=== PATIENT | male | born 1945 | race Caucasian/White ===

== ENCOUNTER 2017-09-17 05:40 | Day surgery (SDC) | payer MEDICARE, OTHER ==
[2017-09-17] MEDS ORDERED: fentaNYL 100 MCG/2 ML SDV ONE (06:15)
[2017-09-17] MEDS ORDERED: Midazolam 1 MG/ML 2 ML SDV ONE (06:15)
[2017-09-17] MEDS ORDERED: Sodium Chloride 0.9% 10 ML Syringe FLUSH PRN (06:26)
[2017-09-17] MEDS ORDERED: Sodium Chloride 0.9% 10 ML Syringe FLUSH SCH (06:30)
[2017-09-17] MEDS ORDERED: Dextrose 5%-0.45% NaCl 1,000 ML IV SCH ×2 (06:30)
[2017-09-17] MEDS ORDERED: fentaNYL 100 MCG/2 ML SDV IV ONE ×2 (07:06→07:07)
[2017-09-17] MEDS ORDERED: Midazolam 1 MG/ML 2 ML SDV IV ONE ×3 (07:07→07:09)
[2017-09-17 10:48] VITALS: BP 108/77
--- NOTE | 2017-09-17 11:07 | OR ---
DATE: 09/17/2017 PROCEDURES: Esophagogastroduodenoscopy and multiple pinch biopsies. INSTRUMENT USED: GIF-H180 Olympus video panendoscope. PREMEDICATIONS: No oral topical anesthesia used. Fentanyl 100 mcg intravenous, Versed 2 mg intravenous. Nasal O2 cannula. The procedure was done under pulse oximetry, BP recording, and panel monitor. INDICATION: The patient on anticoagulants with a history of melena and anemia, requiring packed cell transfusion. DESCRIPTION OF PROCEDURE: Esophagogastroduodenoscopy is performed for detection of any active erosive lesions. Coughlin esophagus and/or malignancy also under consideration. H. pylori status to be determined. Endoscopic hemostasis therapy if needed. The scope was passed with ease. Adequate visualization of the esophagus was made from proximal to distal areas. No upper esophageal lesions identified. No distal esophageal stricture. No uphill or downhill esophageal varices. No Karis-Wade tear. No evidence of erosive esophagitis by [place] criteria. No esophageal polyp or tumor mass identified. Z-line was seen at around 40 cm distal to the oral verge, configuration consistent with grade 1 by ZAP classification. No proximal gastric varices noted. Gastric fundus examination by retroflexion showed no polypoid lesions. No gastric ulcer, malignant mass, or vascular ectasia identified. Diminutive polyp was noted in the proximal gastric body. The examination was compromised especially in the proximal stomach due to the presence of solid food material that could not be aspirated clear. Duodenal bulb showed no ulcer. Visualized second part of the duodenum was unremarkable. Multiple pinch biopsies were taken from the gastric antrum and proximal body and sent for PyloriTek test for H. pylori, and if negative in an hour, the tissue is to be sent for histopathology. No bleeding was noted from any of the visualized areas at the completion of examination. Photographs were taken of the duodenal bulb, gastric antrum, fundus, and distal esophagus. IMPRESSION: Gastroparesis. The patient tolerated the procedure well. [facility] /[id number]
== END 2017-09-17 09:18 | disposition home or self-care (01) ==
LOC: DL.ENDO 05:40
PROVIDERS: ATTEND Internal Medicine Gastroenterology
DX: D64.9 Anemia, unspecified (principal); K92.1 Melena; K31.84 Gastroparesis; K31.89 Other diseases of stomach and duodenum; K31.7 Polyp of stomach and duodenum; I10 Essential (primary) hypertension
CPT/HCPCS: 43239; 87077; J7042; J2250; J3010

== ENCOUNTER 2017-11-27 05:31 | Day surgery (SDC) | payer MEDICARE, OTHER ==
[2017-11-27] MEDS ORDERED: fentaNYL 100 MCG/2 ML SDV IV ONE ×3 (05:32→06:29)
[2017-11-27] MEDS ORDERED: Midazolam 1 MG/ML 2 ML SDV IV ONE ×7 (05:32→06:36)
[2017-11-27] MEDS ORDERED: Sodium Chloride 0.9% 10 ML Syringe FLUSH PRN (06:00)
[2017-11-27] MEDS ORDERED: Dextrose 5%-0.45% NaCl 1,000 ML IV SCH (06:00)
[2017-11-27] MEDS ORDERED: Midazolam 1 MG/ML 2 ML SDV ONE (06:01)
[2017-11-27] MEDS ORDERED: fentaNYL 100 MCG/2 ML SDV ONE (06:01)
--- NOTE | 2017-11-27 08:51 | OR ---
DATE: 11/27/2017 PROCEDURES: Total colonoscopy, narrow-band imaging, and cold snare polypectomy. INSTRUMENT USED: CF-H180 AL Olympus video colonoscope. PREMEDICATIONS: Fentanyl 100 mcg intravenous, Versed 4 mg intravenous. Nasal O2 cannula. The procedure was done under pulse oximetry, BP recording, and dinkey motor operator. INDICATION: The patient with increasing constipation and recent gastrointestinal bleeding and related anemia. Colonoscopic examination is done for detection of any polypoid lesions and removal. Endoscopic hemostasis therapy if needed. DESCRIPTION OF PROCEDURE: Initial rectal exam was unremarkable. Rigid anoscopy was normal. The colonoscope was passed with ease. Scattered diverticula were noted in the distal left colon along with some deformity. The scope was passed with ease up to the ileocecal area. Photographs were taken of the normal-appearing cecum identified by landmarks of appendiceal orifice and double-bulged ileocecal folds. No bleeding was noted from any of the visualized areas at the commencement of the examination. No stricture. No vascular ectasia. No large isolated ulcerations seen. No evidence of diffuse inflammatory bowel disease in the form of friability, contact bleeding, or ulcerations. Probing the proximal sides of folds and flexures, using adequate distention and clearing of the stool material, withdrawal of the scope was made. The bowel preparation was found to be adequate. In the mid ascending colon, 5-mm sized benign-appearing polyp was noted. NBI views were obtained. Photographs were taken. Cold snare polypectomy was done, and the tissue was retrieved and sent for histopathology. No bleeding was noted from any of the visualized areas at the completion of examination. IMPRESSION: 1. Diverticulosis. 2. Ascending colon polyp. The patient tolerated the procedure well. [facility] /[id number]
[2017-11-27 12:38] VITALS: BP 119/63
== END 2017-11-27 08:52 | disposition home or self-care (01) ==
LOC: DL.ENDO 05:31
PROVIDERS: ATTEND Internal Medicine Gastroenterology
DX: K58.1 Irritable bowel syndrome with constipation (principal); D64.9 Anemia, unspecified; K57.30 Diverticulosis of large intestine without perforation or abscess without bleeding; D12.2 Benign neoplasm of ascending colon; I10 Essential (primary) hypertension; I25.10 Atherosclerotic heart disease of native coronary artery without angina pectoris; E78.5 Hyperlipidemia, unspecified; M06.9 Rheumatoid arthritis, unspecified
CPT/HCPCS: 88305; J2250; J3010; J7042

== ENCOUNTER 2018-09-23 09:31 | Emergency (ER) | payer MEDICARE, OTHER ==
[2018-09-23 09:36] VITALS: BP 143/68; PULSE 88
[2018-09-23] MEDS ORDERED: Sodium Chloride 0.9% 10 ML Syringe FLUSH PRN (09:36)
--- NOTE | 2018-09-23 09:44 | EDM.PDOC ---
<Petra Farr - Last Filed: 09/23/18 09:48> ED HPI GENERAL MEDICAL PROBLEM - General Chief Complaint: Gastrointestinal Problem Stated Complaint: BLEEDING FROM RECTUM/ON BLOOD THINNER Time Seen by Provider: 09/23/18 09:31 Source of Information: Reports: Patient History Limitations: Reports: No Limitations - History of Present Illness INITIAL COMMENTS - FREE TEXT/NARRATIVE: Patient arrives to ER with CC of bleeding per rectum that he first noticed last night, a small amount after he had wiped. Patient states that he has been constipated as of late, and had to strain significantly after having a stool last night. Patient does have external hemorrhoid that he contributed this to as this has happened in the past. However, today patient noticed that when he was in the shower he started to see a flow of bright red blood down his leg. Patient has never had any bleeding as significant as this before. Patient has been on Xarelto S/P AL in 2014 and subsequent LLE DVT. Patient denies any dizziness, shortness of breath, or vision changes. Patient's VSS. Patient does have history of multiple colonoscopies with a previous hx of polyps. Patient reports taking 2 Tramadol per day for his left hip that he states he "needs surgery on". Onset: Today Location: Reports: Other (rectum) Quality: Reports: Ache Severity: Moderate Rectal Pain Score (Numeric/FACES): 4 - Related Data Allergies Allergy/AdvReac Type Severity Reaction Status Date / Time No Known Allergies Allergy Verified 09/23/18 09:40 Home Meds: Home Meds Gabapentin [Neurontin] 600 mg PO BID 07/05/14 [History] Triamterene/Hydrochlorothiazid [Triamterene-HCTZ 37.5-25 MG] 1 tab PO DAILY [History] tiZANidine [Zanaflex] 2 mg PO DAILY PRN 07/05/14 [History] Docusate Sodium [Colace] 100 mg PO BID 08/25/14 [History] Metoprolol Succinate [Toprol XL] 25 mg PO BEDTIME 09/19/14 [History] Cetirizine [ZyrTEC] 10 mg PO DAILY PRN 02/03/15 [History] Clopidogrel [Plavix] 75 mg PO DAILY 10/22/16 [History] Rivaroxaban [Xarelto] 10 mg PO DAILY 10/22/16 [History] Folic Acid 1 mg PO DAILY 12/26/16 [History] Albuterol Sulfate [Proair Hfa] 1 puff INH ASDIRECTED PRN 09/10/17 [History] Budesonide/Formoterol Fumarate [Symbicort 160-4.5 Mcg Inhaler] 1 puff INH BID [History] Ezetimibe [Zetia] 10 mg PO DAILY 09/10/17 [History] Methylcellulose [Fiber Laxative] 500 mg PO DAILY 09/10/17 [History] Pantoprazole [ProTONIX] 40 mg PO BID 09/10/17 [History] Tolterodine Tartrate [Detrol LA] 4 mg PO DAILY 09/10/17 [History] amLODIPine/Valsartan [Amlodipine-Valsartan 10-320 mg] 10 - 320 mg PO BEDTIME [History] Clotrimazole/Betamethasone Dip [Lotrisone Cream] 1 applic TOP ASDIRECTED [History] [place]-3/DHA/Epa/Fish Oil [[place]-3 Fish Oil 1,000 MG Sfgl] 1,000 mg PO DAILY [History] Past Medical History HEENT History: Reports: Allergic Rhinitis Other HEENT History: WEARS CORRECTIVE LENSES Cardiovascular History: Reports: Bypass, High Cholesterol, AL, PTCA Other Cardiovascular History: STEMI Respiratory History: Reports: Asthma, Sleep Apnea, SOB Other Respiratory History: IN the last 2 months. Has seen improvement since stent placement. Gastrointestinal History: Reports: Chronic Constipation, GERD, GI Bleed, Hemorrhoids, Irritable Bowel Syndrome Other Gastrointestinal History: COLONIC TUBULAR ADENOMA Genitourinary History: Reports: Prostate Disorder Other Genitourinary History: ERECTILE DYSFUNCTION Musculoskeletal History: Reports: Fibromyalgia, Osteoarthritis, RA Other Musculoskeletal History: OA OF LEFT KNEE; BURSITIS OF LEFT HIP. Neurological History: Reports: None Psychiatric History: Reports: None Endocrine/Metabolic History: Reports: None Hematologic History: Reports: Anemia, Blood Transfusion(s) Immunologic History: Reports: None Oncologic (Cancer) History: Reports: Prostate Dermatologic History: Reports: Other (See Below) Other Dermatologic History: MULTIPLE BRUISES AND SKIN TEARS NOTED - Infectious Disease History Infectious Disease History: Reports: Chicken Pox, Mumps - Past Surgical History Head Surgeries/Procedures: Reports: None HEENT Surgical History: Reports: Cataract Surgery Cardiovascular Surgical History: Reports: Coronary Artery Bypass, Coronary Artery Stent Other Cardiovascular Surgeries/Procedures: VEIN HARVEST; LEFT HEART CATH; PTCA GI Surgical History: Reports: Colonoscopy, EGD Male Surgical History: Reports: Prostatectomy Neurological Surgical History: Reports: Discectomy Other Neurological Surgeries/Procedures: 2009, 2018 discectomy Other Musculoskeletal Surgeries/Procedures:: back susrg Social & Family History - Family History Family Medical History: Noncontributory - Caffeine Use Caffeine Use: Reports: Coffee Other Caffeine Use: 4-5 CUPS DAILY - Living Situation & Occupation Living situation: Reports: Occupation: Retired ED ROS GENERAL - Review of Systems Review Of Systems: ROS reveals no pertinent complaints other than HPI. ED EXAM, GI/ABD - Physical Exam Exam: See Below Exam Limited By: No Limitations General Appearance: Alert, WD/WN, No Apparent Distress Head: Atraumatic, Normocephalic Neck: Normal Inspection, Supple, Non-Tender, Full Range of Motion Respiratory/Chest: No Respiratory Distress, Lungs Clear, Normal Breath Sounds, No Accessory Muscle Use, Chest Non-Tender Cardiovascular: Normal Peripheral Pulses, Regular Rate, Rhythm, No Edema, No Gallop, No JVD, No Murmur, No Rub GI/Abdominal Exam: Normal Bowel Sounds, Soft, No Organomegaly, No Distention, No Abnormal Bruit, No Mass, Pelvis Stable, Tender (tenderness to LLQ) Rectal (Males) Exam: Normal Rectal Tone, Hemorrhoids (external), Tenderness. No : Normal Exam (bright red blood noted within rectal vault, stream of red blood noted upin inspection) Back Exam: Normal Inspection, Full Range of Motion. No: CVA Tenderness (L), CVA Tenderness (R) Extremities: Normal Inspection, Normal Range of Motion, Non-Tender, Normal Capillary Refill, No Pedal Edema Neurological: Alert, Oriented, CN II-XII Intact, Normal Cognition, Normal Gait, Normal Reflexes, No Motor/Sensory Deficits Psychiatric: Normal Affect, Normal Mood Skin Exam: Warm, Dry, Intact, Normal Color, No Rash Course - Vital Signs Last Recorded V/S: Last Vital Signs Temp 98.8 F 09/23/18 09:32 Pulse 88 09/23/18 09:32 Resp 20 09/23/18 09:32 BP 143/68 H 09/23/18 09:32 Pulse Ox 95 09/23/18 09:32 - Orders/Labs/Meds Orders: Active Orders 24 hr Category Date Time Status Peripheral IV Care [RC] . DIRECTED Care 09/23/18 09:36 Ordered COMPREHENSIVE METABOLIC PN,CMP [CHEM] Stat Lab 09/23/18 09:36 Ordered INR,PT,PROTHROMBIN TIME [COAG] Stat Lab 09/23/18 09:36 Ordered PTT,PARTIAL THROMBOPLSTIN TIME [COAG] Stat Lab 09/23/18 09:36 Ordered UA RFX ALESIA AND CULT IF INDIC [URIN] Stat Lab 09/23/18 09:36 Ordered Sodium Chloride 0.9% [Normal Saline] 1,000 ml Med 09/23/18 09:47 Active IV .BOLUS Sodium Chloride 0.9% [Saline Flush] Med 09/23/18 09:36 Ordered 10 ml FLUSH ASDIRECTED PRN Peripheral IV Insertion Adult [OM.PC] Stat Oth 09/23/18 09:36 Ordered Medication Orders Sodium Chloride (Normal Saline) 1,000 mls @ 999 mls/hr IV .BOLUS ONE Stop: 09/23/18 10:47 Last Admin: 09/23/18 09:50 Dose: 999 mls/hr Sodium Chloride (Saline Flush) 10 ml FLUSH ASDIRECTED PRN PRN Reason: Keep Vein Open Last Admin: 09/23/18 09:45 Dose: 10 ml Labs: Laboratory Tests 09/23/18 Range/Units 09:41 WBC 6.2 (5.0-10.0) 10^3/uL RBC 4.58 L (4.6-6.2) 10^6/uL Hgb 13.7 L (14.0-18.0) g/dL Hct 41.7 (40.0-54.0) % MCV 91.0 (80-100) fL MCH 29.9 (27.0-34.0) pg MCHC 32.9 L (33.0-35.0) g/dL Plt Count 231 (150-450) 10^3/uL Neut % (Auto) 58.2 (42.2-75.2) % Lymph % (Auto) 22.0 (20.5-50.1) % [place] % (Auto) 12.5 H (2-8) % Eos % (Auto) 6.2 H (1.0-3.0) % Baso % (Auto) 1.1 H (0.0-1.0) % Meds: Medications Generic Name Dose Route Start Last Admin Trade Name Freq PRN Reason Stop Dose Admin Sodium Chloride 1,000 mls @ 999 mls/hr 09/23/18 09:47 09/23/18 09:50 Normal Saline IV 09/23/18 10:47 999 mls/hr .BOLUS ONE Administration Sodium Chloride 10 ml 09/23/18 09:36 09/23/18 09:45 Saline Flush FLUSH 10 ml ASDIRECTED PRN Administration Keep Vein Open Departure - Departure Time of Disposition: 09:47 Condition: Good Clinical Impression: Lower GI bleed - Discharge Information *PRESCRIPTION DRUG MONITORING PROGRAM REVIEWED*: No *COPY OF PRESCRIPTION DRUG MONITORING REPORT IN PATIENT JUANI: No Forms: ED Department Discharge, Interfacility Transfer EMTALA Additional Instructions: Transfer to [facility] for further evaluation of rectal bleeding. - My Orders Last 24 Hours: My Active Orders 09/23/18 09:36 Peripheral IV Care [RC] . DIRECTED COMPREHENSIVE METABOLIC PN,CMP [CHEM] Stat INR,PT,PROTHROMBIN TIME [COAG] Stat PTT,PARTIAL THROMBOPLSTIN TIME [COAG] Stat UA RFX ALESIA AND CULT IF INDIC [URIN] Stat Sodium Chloride 0.9% [Saline Flush] 10 ml FLUSH ASDIRECTED PRN Peripheral IV Insertion Adult [OM.PC] Stat - Assessment/Plan Last 24 Hours: My Active Orders 09/23/18 09:36 Peripheral IV Care [RC] . DIRECTED COMPREHENSIVE METABOLIC PN,CMP [CHEM] Stat INR,PT,PROTHROMBIN TIME [COAG] Stat PTT,PARTIAL THROMBOPLSTIN TIME [COAG] Stat UA RFX ALESIA AND CULT IF INDIC [URIN] Stat Sodium Chloride 0.9% [Saline Flush] 10 ml FLUSH ASDIRECTED PRN Peripheral IV Insertion Adult [OM.PC] Stat <Mark Beck - Last Filed: 09/23/18 09:56> ED HPI GENERAL MEDICAL PROBLEM - History of Present Illness INITIAL COMMENTS - FREE TEXT/NARRATIVE: Pt is followed by Dr. Fisher for anemia with undetermined source of blood loss. He has had several blood transfusion, most recently approx. 6 months ago. Past Medical History HEENT History: Reports: Impaired Vision Cardiovascular History: Reports: CAD Course - Re-Assessments/Exams Free Text/Narrative Re-Assessment/Exam: 09/23/18 09:54 I personally performed or re-performed the physical examination and medical decision making. I have verified all student documentation or findings, including history, physical exam and/or medical decision making. Departure - Departure Condition: Serious
[2018-09-23] MEDS ORDERED: Sodium Chloride 0.9% 1,000 ML IV ONE (09:47)
[2018-09-23 10:08] LABS: ANION GAP 13.8
== END 2018-09-23 10:09 ==
LOC: DL.ED 09:31
DX: K92.2 Gastrointestinal hemorrhage, unspecified (principal); E78.00 Pure hypercholesterolemia, unspecified; I25.2 Old myocardial infarction; J45.909 Unspecified asthma, uncomplicated; Z79.899 Other long term (current) drug therapy; Z79.01 Long term (current) use of anticoagulants
CPT/HCPCS: 36415; 80053; 85025; 85610; 85730; 99284; J7030

== ENCOUNTER 2019-01-25 11:05 | Inpatient (IN) | payer MEDICARE, OTHER ==
[2019-01-25] MEDS ORDERED: Sodium Chloride 0.9% 10 ML Syringe FLUSH PRN (17:27)
[2019-01-25] MEDS ORDERED: Nitroglycerin 0.4 MG Tab.SL SL PRN (17:35)
[2019-01-25] MEDS ORDERED: Albuterol 6.7 GM Inhaler INH PRN (17:35)
[2019-01-25] MEDS ORDERED: TIZANIDINE 2 MG PO PRN (17:35)
[2019-01-25] MEDS ORDERED: Betamethasone Dipropionate/Clotrimazole 0.05-1% Crm 15 GM Tube TOP PRN (17:35)
[2019-01-25] MEDS ORDERED: Loratadine 10 MG Tab PO PRN (17:35)
[2019-01-25] MEDS ORDERED: Fluticasone Propionate Nasal Spray 16 GM Bottle NASBOTH PRN (17:35)
--- NOTE | 2019-01-25 17:40 | PCM.HP ---
H&P History of Present Illness - General Date of Service: 01/25/19 Admit Problem/Dx: Admission Diagnosis/Problem Admission Diagnosis/Problem Status post left hip replacement Source of Information: Patient History Limitations: Reports: No Limitations - History of Present Illness Initial Comments - Free Text/Narative: Renetta is a 73 y/o M with h/o hip OA. Patient was admitted to [facility] for electiveleft DELICIA on 01/22/19. He was discharged to [facility] to continue PT/OT. At bed side evaluation patient only reports pain to the left hip with ambulation. Otherwise he has no other complaint. Improves with: Reports: None Worsens with: Reports: None Associated Symptoms: Reports: No Other Symptoms Left Hip Pain Score (Numeric/FACES): 4 - Related Data Allergies/Adverse Reactions: Allergies Allergy/AdvReac Type Severity Reaction Status Date / Time No Known Allergies Allergy Verified 01/25/19 16:17 Home Medications: Home Meds Gabapentin [Neurontin] 600 mg PO BID 07/05/14 [History] Triamterene/Hydrochlorothiazid [Triamterene-HCTZ 37.5-25 MG] 1 tab PO DAILY [History] tiZANidine [Zanaflex] 2 mg PO BEDTIME PRN 07/05/14 [History] Docusate Sodium [Colace] 100 mg PO .EVERY THREE DAYS 08/25/14 [History] Metoprolol Succinate [Toprol XL] 25 mg PO DAILY 09/19/14 [History] Cetirizine [ZyrTEC] 10 mg PO DAILY PRN 02/03/15 [History] Rivaroxaban [Xarelto] 10 mg PO DAILY 10/22/16 [History] Albuterol Sulfate [Proair Hfa] 2 puff INH Q4H PRN 09/10/17 [History] Budesonide/Formoterol Fumarate [Symbicort 160-4.5 Mcg Inhaler] 2 puff INH BID [History] Ezetimibe [Zetia] 10 mg PO DAILY 09/10/17 [History] Pantoprazole [ProTONIX] 40 mg PO BID 09/10/17 [History] Tolterodine Tartrate [Detrol LA] 4 mg PO DAILY 09/10/17 [History] amLODIPine/Valsartan [Amlodipine-Valsartan 10-320 mg] 1 tab PO DAILY 09/10/17 [ History] Clotrimazole/Betamethasone Dip [Lotrisone Cream] 1 applic TOP BID PRN 11/07/17 [ History] Acetaminophen 1,000 mg PO Q8H 01/25/19 [History] Fluticasone Propionate [Flonase] 1 spray NASBOTH DAILY PRN 01/25/19 [History] Magnesium Oxide 250 mg PO DAILY 01/25/19 [History] Mv-Mn/Folic Acid/Lutein/Boe955 [Mens Multivit High Potency Tab] 1 tab PO DAILY 01/25/19 [History] Nitroglycerin [Nitrostat] 0.4 mg SL .Q5MIN PRN 01/25/19 [History] Polyethylene Glycol 3350 [MiraLAX] 17 gram PO .EVERYOTHERDAY 01/25/19 [History] oxyCODONE HCl [Oxycodone HCl] 10 mg PO Q4H PRN 01/25/19 [History] traMADol [Ultram] 50 mg PO Q6H PRN 01/25/19 [History] Past Medical History HEENT History: Reports: Impaired Vision Other HEENT History: WEARS CORRECTIVE LENSES Cardiovascular History: Reports: CAD Other Cardiovascular History: STEMI Respiratory History: Reports: Asthma, Sleep Apnea, SOB Other Respiratory History: IN the last 2 months. Has seen improvement since stent placement. Gastrointestinal History: Reports: Chronic Constipation, GERD, GI Bleed, Hemorrhoids, Irritable Bowel Syndrome Other Gastrointestinal History: COLONIC TUBULAR ADENOMA Genitourinary History: Reports: Prostate Disorder Other Genitourinary History: ERECTILE DYSFUNCTION Musculoskeletal History: Reports: Fibromyalgia, Osteoarthritis, RA Other Musculoskeletal History: OA OF LEFT KNEE; BURSITIS OF LEFT HIP. Neurological History: Reports: None Psychiatric History: Reports: None Endocrine/Metabolic History: Reports: None Hematologic History: Reports: Anemia, Blood Transfusion(s) Immunologic History: Reports: None Oncologic (Cancer) History: Reports: Prostate Dermatologic History: Reports: Other (See Below) Other Dermatologic History: MULTIPLE BRUISES AND SKIN TEARS NOTED - Infectious Disease History Infectious Disease History: Reports: Chicken Pox, Mumps - Past Surgical History Head Surgeries/Procedures: Reports: None HEENT Surgical History: Reports: Cataract Surgery Other HEENT Surgeries/Procedures: bilateral Other Cardiovascular Surgeries/Procedures: 1 stent GI Surgical History: Reports: Colonoscopy, EGD Male Surgical History: Reports: Prostatectomy Neurological Surgical History: Reports: Discectomy Other Neurological Surgeries/Procedures: 2008, 2018 discectomy Other Musculoskeletal Surgeries/Procedures:: back surg Social & Family History - Family History Family Medical History: Noncontributory - Tobacco Use Smoking Status *Q: Former Smoker Used Tobacco, but Quit: Yes Month/Year Tobacco Last Used: 1990 Second Hand Smoke Exposure: No - Caffeine Use Caffeine Use: Reports: Coffee Other Caffeine Use: 4-5 CUPS DAILY - Recreational Drug Use Recreational Drug Use: No - Living Situation & Occupation Living situation: Reports: Occupation: Retired H&P Review of Systems - Review of Systems: Review Of Systems: See Below General: Reports: No Symptoms HEENT: Reports: No Symptoms Pulmonary: Reports: No Symptoms Cardiovascular: Reports: No Symptoms Gastrointestinal: Reports: No Symptoms Genitourinary: Reports: No Symptoms Musculoskeletal: Reports: No Symptoms Skin: Reports: No Symptoms Psychiatric: Reports: No Symptoms Neurological: Reports: No Symptoms Hematologic/Lymphatic: Reports: No Symptoms Immunologic: Reports: No Symptoms Exam - Exam Exam: See Below - Vital Signs Vital Signs: Last Vital Signs Temp 100.4 F 01/25/19 16:35 Pulse 78 01/25/19 16:35 Resp 18 01/25/19 16:35 BP 134/103 H 01/25/19 16:35 Pulse Ox 96 01/25/19 16:35 Weight: 213 lb 6.4 oz - Exam Quality Assessment: DVT Prophylaxis General: Alert, Oriented, 4 HEENT: PERRLA, Hearing Intact, Mucosa Moist & [place], Nares Patent, Normal Nasal Septum, Posterior Pharynx Clear, Conjunctiva Clear, EOMI, EACs Clear, TMs Clear Neck: Supple, Trachea Midline, 2 Lungs: Clear to Auscultation, Normal Respiratory Effort Cardiovascular: Regular Rate, Regular Rhythm GI/Abdominal Exam: Normal Bowel Sounds, Soft, Non-Tender, No Organomegaly, No Distention, No Abnormal Bruit, No Mass, Pelvis Stable (Male) Exam: No Hernia, Normal Inspection, Normal Prostate, Circumcised Rectal (Males) Exam: Normal Exam, Normal Rectal Tone, Prostate Normal Back Exam: Normal Inspection, Full Range of Motion, NT Extremities: Normal Inspection, Normal Range of Motion, Non-Tender, No Pedal Edema, Normal Capillary Refill, Other (Left hip dressing intact) Skin: Warm, Dry, Intact Neurological: Cranial Nerves Intact, Reflexes Equal Bilateral Neuro Extensive - Mental Status: Alert, Oriented x3, Normal Mood/Affect, Normal Cognition Neuro Extensive - Motor, Sensory, Reflexes: CN II-XII Intact, Normal Gait, Normal Reflexes Psychiatric: Alert, Normal Affect, Normal Mood - Problem List (1) Status post left hip replacement SNOMED Code(s): 200090548, [id number], [id number], [id number] ICD Code: Z96.642 - PRESENCE OF LEFT ARTIFICIAL HIP JOINT Status: Acute Current Visit: Yes Problem List Initiated/Reviewed/Updated: Yes Orders Last 24hrs: Active Orders 24 hr Category Date Time Status Patient Status [ADT] Routine ADT 01/25/19 17:31 Ordered Notify Provider Vital Signs [RC] ASDIRECTED Care 01/25/19 17:33 Ordered Oxygen Therapy [RC] PRN Care 01/25/19 17:31 Ordered Peripheral IV Care [RC] . DIRECTED Care 01/25/19 17:35 Ordered Up With Assistance [RC] ASDIRECTED Care 01/25/19 17:27 Ordered VTE/DVT Education [RC] PER UNIT ROUTINE Care 01/25/19 17:31 Ordered Vital Signs [RC] Q4H Care 01/25/19 17:31 Ordered OT Evaluation and Treatment [CONS] Routine Cons 01/25/19 17:27 Ordered PT Evaluation and Treatment [CONS] Routine Cons 01/25/19 17:27 Ordered Regular Diet [DIET] Diet 01/25/19 Dinner Ordered Acetaminophen [Tylenol Extra Strength] Med 01/25/19 17:45 Ordered 1,000 mg PO Q8H Albuterol [Proventil HFA] Med 01/25/19 17:35 Ordered 2 puff INH Q4H PRN Betamethasone/Clotrimazole [Lotrisone] Med 01/25/19 17:35 Ordered 1 applic TOP BID PRN Budesonide/Formoterol Fumarate Med 01/25/19 21:00 Ordered 2 puff INH BID Cetirizine [ZyrTEC] Med 01/25/19 17:35 Ordered 10 mg PO DAILY PRN Docusate Sodium [Colace] Med 01/25/19 17:45 Ordered 100 mg PO .EVERY THREE DAYS Enoxaparin [Lovenox] Med 01/26/19 09:00 Ordered 40 mg SUBCUT DAILY Ezetimibe [Zetia] Med 01/26/19 09:00 Ordered 10 mg PO DAILY Fluticasone Propionate [Flonase] Med 01/25/19 17:35 Ordered 1 spray NASBOTH DAILY PRN Gabapentin [Neurontin] Med 01/25/19 21:00 Ordered 600 mg PO BID HCTZ/Triamterene [Maxzide 25-37.5 MG] Med 01/26/19 09:00 Ordered 1 each PO DAILY Magnesium Oxide Med 01/26/19 09:00 Ordered 250 mg PO DAILY Metoprolol Succinate [Toprol XL] Med 01/26/19 09:00 Ordered 25 mg PO DAILY Mv-Mn/Folic Acid/Lutein/Tuu652 [Mens Multivit High Med 01/26/19 09:00 Ordered Potency Tab] 1 tab PO DAILY Nitroglycerin [Nitrostat] Med 01/25/19 17:35 Ordered 0.4 mg SL .Q5MIN PRN Pantoprazole [ProTONIX] Med 01/25/19 21:00 Ordered 40 mg PO BID Polyethylene Glycol 3350 [MiraLAX] Med 01/25/19 17:45 Ordered 17 gm PO .EVERYOTHERDAY Rivaroxaban [Xarelto] Med 01/26/19 09:00 Ordered 10 mg PO DAILY Sodium Chloride 0.9% [Saline Flush] Med 01/25/19 17:27 Ordered 10 ml FLUSH ASDIRECTED PRN Tolterodine Tartrate [Detrol LA] Med 01/26/19 09:00 Ordered 4 mg PO DAILY amLODIPine/Valsartan [Amlodipine-Valsartan 10-320 mg] Med 01/26/19 09:00 Ordered 1 tab PO DAILY oxyCODONE HCl [Oxycodone HCl] Med 01/25/19 17:35 Ordered 10 mg PO Q4H PRN tiZANidine [Zanaflex] Med 01/25/19 17:35 Ordered 2 mg PO BEDTIME PRN traMADol [Ultram] Med 01/25/19 17:35 Ordered 50 mg PO Q6H PRN Peripheral IV Insertion Adult [OM.PC] Routine Oth 01/25/19 17:27 Ordered Resuscitation Status Routine Resus Stat 01/25/19 17:27 Ordered Medication Orders Acetaminophen (Tylenol Extra Strength) 1,000 mg PO Q8H [facility] Albuterol (Proventil Hfa) gm INH Q4H PRN PRN Reason: Shortness of Breath Betamethasone/Clotrimazole (Lotrisone) gm TOP BID PRN PRN Reason: Rash Docusate Sodium (Colace) 100 mg PO .EVERY THREE DAYS [facility] Ezetimibe (Zetia) 10 mg PO DAILY [facility] Enoxaparin Sodium (Lovenox) 40 mg SUBCUT DAILY [facility] Fluticasone Propionate (Flonase) gm NASBOTH DAILY PRN PRN Reason: Rhinitis Gabapentin (Neurontin) 600 mg PO BID [facility] Magnesium Oxide (Magnesium Oxide) 250 mg PO DAILY [facility] Metoprolol Succinate (Toprol Xl) 25 mg PO DAILY [facility] Nitroglycerin (Nitrostat) 0.4 mg SL .Q5MIN PRN PRN Reason: Chest Pain Non-Formulary Medication (Amlodipine/Valsartan [Amlodipine-Valsartan 10-320 Mg] ) 1 tab PO DAILY [facility] Non-Formulary Medication (Budesonide/Formoterol Fumarate) 2 puff INH BID [facility] Non-Formulary Medication (Cetirizine [Zyrtec]) 10 mg PO DAILY PRN PRN Reason: Allergies Non-Formulary Medication (Mv-Mn/Folic Acid/Lutein/Ttc338 [Mens Multivit High Potency Tab]) 1 tab PO DAILY [facility] Non-Formulary Medication (Oxycodone Hcl [Oxycodone Hcl]) 10 mg PO Q4H PRN PRN Reason: Pain (severe 7-10) Non-Formulary Medication (Tizanidine [Zanaflex]) 2 mg PO BEDTIME PRN PRN Reason: Muscle Spasm Non-Formulary Medication (Tolterodine Tartrate [Detrol La]) 4 mg PO DAILY [facility] Pantoprazole Sodium (Protonix) 40 mg PO BID [facility] Polyethylene Glycol (Miralax) 17 gm PO .EVERYOTHERDAY [facility] Rivaroxaban (Xarelto) 10 mg PO DAILY [facility] Sodium Chloride (Saline Flush) 10 ml FLUSH ASDIRECTED PRN PRN Reason: Keep Vein Open Tramadol HCl (Ultram) 50 mg PO Q6H PRN PRN Reason: Pain (moderate 4-6) Triamterene/HCTZ (Maxzide 25-37.5 Mg) 1 each PO DAILY [facility] Assessment/Plan Comment:: #Hip OA -S/p DELICIA -Continue PT/OT #HTN -Continue home medication #Asthma -Continue home inhalers #Coronary artery disease -s/p PTCA of RCA lesion but underwent CABG x 2 HOLLEY to LAD and SVG to PDA (2014) due to ulcerated LM/oLAD plaque -Continue home medication #Chronic lumbar pain -Chronic current pain meds #Rheumatoid arthritis -On Humira #Chronic anemia -Stable H&H #H/o DVT -On Xarelto #CARMENZA -On cpap with 2L O2qhs #Hx of GI bleed due to Internal hemorrhoids-MOnitor #HLD -On zetia #Overactive bladder -On detrol #DVT ppx -On Xarelto
[2019-01-25] MEDS ORDERED: Docusate Sodium 100 MG Cap PO SCH (17:45)
[2019-01-25] MEDS ORDERED: Polyethylene Glycol 3350 Powder 17 GM Packet PO SCH (17:45)
[2019-01-25] MEDS: Acetaminophen 500 MG Tab PO SCH (18:00)
[2019-01-25] MEDS: oxyCODONE 5 MG Tab PO PRN (19:48)
[2019-01-25] MEDS: Pantoprazole 40 MG Tab.CR PO SCH (20:16)
[2019-01-25] MEDS: Gabapentin 300 MG Cap PO SCH (20:16)
[2019-01-25] MEDS: Formoterol/Mometasone 200-5 MCG 8.8 GM Inhaler IH SCH (22:30)
[2019-01-26] MEDS: Acetaminophen 500 MG Tab PO SCH ×4 (01:57→22:03)
[2019-01-26] MEDS: Pantoprazole 40 MG Tab.CR PO SCH ×2 (06:15→16:59)
[2019-01-26] MEDS: oxyCODONE 5 MG Tab PO PRN ×3 (08:18→20:33)
[2019-01-26] MEDS: Gabapentin 300 MG Cap PO SCH ×2 (08:21→20:33)
[2019-01-26] MEDS ORDERED: Enoxaparin 40 MG/0.4 ML Syringe SUBCUT SCH (09:00)
[2019-01-26] MEDS ORDERED: amLODIPine 5 MG Tab PO SCH ×2 (09:00)
[2019-01-26] MEDS: Tolterodine 2 MG Cap.ER PO SCH (09:07)
[2019-01-26] MEDS: Hydrochlorothiazide/Triamterene 25-37.5 Tab PO SCH (09:07)
[2019-01-26] MEDS: Ezetimibe 10 MG Tab PO SCH (09:07)
[2019-01-26] MEDS: Metoprolol Succinate 25 MG Tab.ER PO SCH (09:09)
[2019-01-26] MEDS: Formoterol/Mometasone 200-5 MCG 8.8 GM Inhaler IH SCH ×2 (09:11→20:34)
[2019-01-26] MEDS ORDERED: Polyethylene Glycol 3350 Powder 17 GM Packet PO SCH (09:30)
[2019-01-26] MEDS: AMLODIPINE PO SCH (10:21)
[2019-01-26] MEDS: traMADol 50 MG Tab PO PRN ×3 (10:21→23:28)
[2019-01-26] MEDS: VALSARTAN PO SCH (10:21)
[2019-01-26] MEDS: Multivitamins,Therapeutic Tab PO SCH (10:22)
[2019-01-26] MEDS: Rivaroxaban 10 MG Tab PO SCH (10:22)
[2019-01-26] MEDS: Polyethylene Glycol 3350 Powder 17 GM Packet PO SCH (10:22)
--- NOTE | 2019-01-26 13:54 | CR ---
EXAMINATION: Chest 1V Frontal SEX: Male AGE: 73 years CLINICAL HISTORY: 73-year-old male with fever. INTERPRETATION: (Upright AP portable chest) 1. Sternotomy wires since 2014 exam. 2. Normal cardiac silhouette without pulmonary venous congestion, cephalization of flow, alveolar edema or dependent pleural fluid accumulation. 3. No new lung mass, hilar lymphadenopathy or focal lobar pneumonia. 4. No atelectasis/collapse. 5. No pneumothorax. CONCLUSION: No acute cardiopulmonary abnormality
[2019-01-27] MEDS: oxyCODONE 5 MG Tab PO PRN ×4 (02:16→23:02)
[2019-01-27] MEDS: Pantoprazole 40 MG Tab.CR PO SCH ×2 (06:17→17:11)
[2019-01-27] MEDS: Acetaminophen 500 MG Tab PO SCH ×3 (06:17→21:00)
[2019-01-27] MEDS: traMADol 50 MG Tab PO PRN ×3 (06:18→21:00)
[2019-01-27] MEDS: Hydrochlorothiazide/Triamterene 25-37.5 Tab PO SCH (08:49)
[2019-01-27] MEDS: AMLODIPINE PO SCH (08:49)
[2019-01-27] MEDS: VALSARTAN PO SCH (08:49)
[2019-01-27] MEDS: Rivaroxaban 10 MG Tab PO SCH (08:50)
[2019-01-27] MEDS: Gabapentin 300 MG Cap PO SCH ×2 (08:50→20:59)
[2019-01-27] MEDS: Tolterodine 2 MG Cap.ER PO SCH (08:50)
[2019-01-27] MEDS: Metoprolol Succinate 25 MG Tab.ER PO SCH (08:51)
[2019-01-27] MEDS: Ezetimibe 10 MG Tab PO SCH (08:51)
[2019-01-27] MEDS: Multivitamins,Therapeutic Tab PO SCH (08:51)
[2019-01-27] MEDS: Formoterol/Mometasone 200-5 MCG 8.8 GM Inhaler IH SCH ×2 (08:54→21:01)
[2019-01-27] MEDS ORDERED: Cyclobenzaprine 10 MG Tab PO PRN (14:40)
[2019-01-27] MEDS ORDERED: Polyethylene Glycol 3350 Powder 17 GM Packet PO PRN (15:55)
[2019-01-27 18:46] LABS: ANION GAP 15.3; CHLORIDE,CL 96 mmol/L (101-111); SODIUM,NA 135 mmol/L (135-145)
[2019-01-27] MEDS: Sodium Chloride 0.9% 1,000 ML IV SCH (19:48)
[2019-01-27] MEDS: Oseltamivir 75 MG Cap PO SCH (21:00)
[2019-01-28] MEDS: traMADol 50 MG Tab PO PRN ×4 (02:33→21:30)
[2019-01-28] MEDS: Sodium Chloride 0.9% 1,000 ML IV SCH (02:34)
[2019-01-28] MEDS: Acetaminophen 500 MG Tab PO SCH ×3 (05:04→21:29)
[2019-01-28] MEDS: Pantoprazole 40 MG Tab.CR PO SCH ×2 (05:04→16:06)
[2019-01-28] MEDS: oxyCODONE 5 MG Tab PO PRN ×4 (05:04→18:51)
[2019-01-28] MEDS: Gabapentin 300 MG Cap PO SCH ×2 (08:38→21:29)
[2019-01-28] MEDS: Tolterodine 2 MG Cap.ER PO SCH (08:38)
[2019-01-28] MEDS: Oseltamivir 75 MG Cap PO SCH ×2 (08:38→21:29)
[2019-01-28] MEDS: Multivitamins,Therapeutic Tab PO SCH (08:38)
[2019-01-28] MEDS: Rivaroxaban 10 MG Tab PO SCH (08:39)
[2019-01-28] MEDS: Polyethylene Glycol 3350 Powder 17 GM Packet PO SCH (08:40)
[2019-01-28] MEDS: Hydrochlorothiazide/Triamterene 25-37.5 Tab PO SCH (09:29)
[2019-01-28] MEDS: AMLODIPINE PO SCH (09:29)
[2019-01-28] MEDS: VALSARTAN PO SCH (09:29)
[2019-01-28] MEDS: Metoprolol Succinate 25 MG Tab.ER PO SCH (09:29)
--- NOTE | 2019-01-28 09:39 | PCM.PN ---
- General Info Date of Service: 01/28/19 Admission Dx/Problem (Free Text): Admission Diagnosis/Problem Admission Diagnosis/Problem Status post left hip replacement Subjective Update: patient was having fever and chills yesterday. I evaluated patient yesterday and today. according yesterday evaluation patient had no respiratory or GI symptoms. He was participating in physical therapy and his walk and weight bearing was improving according to patient and PT staff. Today patient says he is feeling better and has not had fever, chills, or sweats since yesterday night. He still denies any new symptoms. He denies sinus congestion, runny nose , sore throat, headache, cough, shortness of breath, chest pain, abdominal pain , diarrhea, urinary symptoms, lower extremities edema, any other symptoms or concerns. According to records history of having elevated temperature on . - Patient Data Vitals - Most Recent: Last Vital Signs Temp 37.9 C 01/27/19 21:00 Pulse 76 01/28/19 09:29 Resp 18 01/27/19 21:00 BP 118/46 L 01/28/19 09:29 Pulse Ox 93 L 01/27/19 21:00 Weight - Most Recent: 95.844 kg I&O - Last 24 Hours: Intake & Output 01/27/19 01/28/19 01/28/19 22:59 06:59 14:59 Intake Total 1000 Balance 1000 Lab Results Last 24 Hours: Laboratory Results - last 24 hr 01/27/19 01/27/19 01/27/19 Range/Units 17:25 18:07 18:07 WBC 11.2 H (5.0-10.0) 10^3/uL RBC 3.90 L (4.6-6.2) 10^6/uL Hgb 11.5 L (14.0-18.0) g/dL Hct 35.3 L (40.0-54.0) % MCV 90.5 (80-100) fL MCH 29.5 (27.0-34.0) pg MCHC 32.6 L (33.0-35.0) g/dL Plt Count 245 (150-450) 10^3/uL Neut % (Auto) 65.0 (42.2-75.2) % Lymph % (Auto) 13.5 L (20.5-50.1) % [place] % (Auto) 12.7 H (2-8) % Eos % (Auto) 8.3 H (1.0-3.0) % Baso % (Auto) 0.5 (0.0-1.0) % Add Manual Diff Yes Neutrophils % (Manual) 69 (42-75) % Lymphocytes % (Manual) 16 L (20-50) % Monocytes % (Manual) 7 (2-8) % Eosinophils % (Manual) 7 H (1-3) % Basophils % (Manual) 1 Sodium 135 (135-145) mmol/L Potassium 4.3 (3.6-5.0) mmol/L Chloride 96 L (101-111) mmol/L Carbon Dioxide 28.0 (21.0-31.0) mmol/L Anion Gap 15.3 BUN 30 H (7-18) mg/dL Creatinine 1.1 (0.6-1.3) mg/dL Est Cr Clr Drug Dosing 66.63 mL/min Estimated GFR (MDRD) > 60 Glucose 117 H (74-105) mg/dL Calcium 8.7 (8.4-10.2) mg/dl C-Reactive Protein (0.0-1.3) mg/dL Urine Color Yellow (YELLOW) Urine Appearance Clear (CLEAR) Urine pH 6.0 (5.0-9.0) Ur Specific [place] 1.020 (1.005-1.030) Urine Protein 30 H (NEGATIVE) Urine Glucose (UA) Negative (NEGATIVE) Urine Ketones Negative (NEGATIVE) Urine Occult Blood Negative (NEGATIVE) Urine Nitrite Negative (NEGATIVE) Urine Bilirubin Negative (NEGATIVE) Urine Urobilinogen 0.2 (0.2-1.0) mg/dL Ur Leukocyte Esterase Negative (NEGATIVE) Urine RBC 0-5 /HPF Urine WBC 0-5 (0-5/HPF) /HPF Ur Epithelial Cells Occasional (NOT SEEN) /HPF Urine Bacteria Moderate H (0-FEW/HPF) /HPF Fine Granular Casts Occasional H (NOT SEEN) /LPF 01/27/19 Range/Units 18:07 WBC (5.0-10.0) 10^3/uL RBC (4.6-6.2) 10^6/uL Hgb (14.0-18.0) g/dL Hct (40.0-54.0) % MCV (80-100) fL MCH (27.0-34.0) pg MCHC (33.0-35.0) g/dL Plt Count (150-450) 10^3/uL Neut % (Auto) (42.2-75.2) % Lymph % (Auto) (20.5-50.1) % Frontier % (Auto) (2-8) % Eos % (Auto) (1.0-3.0) % Baso % (Auto) (0.0-1.0) % Add Manual Diff Neutrophils % (Manual) (42-75) % Lymphocytes % (Manual) (20-50) % Monocytes % (Manual) (2-8) % Eosinophils % (Manual) (1-3) % Basophils % (Manual) Sodium (135-145) mmol/L Potassium (3.6-5.0) mmol/L Chloride (101-111) mmol/L Carbon Dioxide (21.0-31.0) mmol/L Anion Gap BUN (7-18) mg/dL Creatinine (0.6-1.3) mg/dL Est Cr Clr Drug Dosing mL/min Estimated GFR (MDRD) Glucose (74-105) mg/dL Calcium (8.4-10.2) mg/dl C-Reactive Protein 19.0 H (0.0-1.3) mg/dL Urine Color (YELLOW) Urine Appearance (CLEAR) Urine pH (5.0-9.0) Ur Specific [place] (1.005-1.030) Urine Protein (NEGATIVE) Urine Glucose (UA) (NEGATIVE) Urine Ketones (NEGATIVE) Urine Occult Blood (NEGATIVE) Urine Nitrite (NEGATIVE) Urine Bilirubin (NEGATIVE) Urine Urobilinogen (0.2-1.0) mg/dL Ur Leukocyte Esterase (NEGATIVE) Urine RBC /HPF Urine WBC (0-5/HPF) /HPF Ur Epithelial Cells (NOT SEEN) /HPF Urine Bacteria (0-FEW/HPF) /HPF Fine Granular Casts (NOT SEEN) /LPF [place] Results Last 24 Hours: Microbiology 01/27/19 17:25 Urine Culture - Preliminary Urine, Clean Catch NO GROWTH AFTER 1 DAY 01/27/19 17:55 Influenza Type A Antigen Screen - Final Nasopharyngeal Swab NEGATIVE INFLUENZA A VIRUS AG REFERENCE RANGE: NEGATIVE Influenza Type B Antigen Screen - Final Positive Influenza B Ag 01/26/19 12:34 Aerobic Blood Culture - Preliminary Blood - Venous - Lab Draw NO GROWTH AFTER 1 DAY Anaerobic Blood Culture - Preliminary NO GROWTH AFTER 1 DAY 01/26/19 12:38 Aerobic Blood Culture - Preliminary Blood - Venous NO GROWTH AFTER 1 DAY Anaerobic Blood Culture - Preliminary NO GROWTH AFTER 1 DAY Med Orders - Current: Current Medications Acetaminophen (Tylenol Extra Strength) 1,000 mg PO Q8HR [facility] Last Admin: 01/28/19 05:04 Dose: 1,000 mg Albuterol (Proventil Hfa) 0 gm INH Q4H PRN PRN Reason: Shortness of Breath Betamethasone/Clotrimazole (Lotrisone) 0 gm TOP BID PRN PRN Reason: Rash Cyclobenzaprine HCl (Flexeril) 10 mg PO TID PRN PRN Reason: Muscle Spasm Last Admin: 01/27/19 21:04 Dose: 10 mg Docusate Sodium (Colace) 100 mg PO .EVERY THREE DAYS [facility] Ezetimibe (Zetia) 10 mg PO DAILY [facility] Last Admin: 01/27/19 08:51 Dose: 10 mg Fluticasone Propionate (Flonase) 0 gm NASBOTH DAILY PRN PRN Reason: Rhinitis Gabapentin (Neurontin) 600 mg PO BID [facility] Last Admin: 01/28/19 08:38 Dose: 600 mg Sodium Chloride (Normal Saline) 1,000 mls @ 150 mls/hr IV ASDIRECTED [facility] Stop: 01/29/19 02:09 Last Admin: 01/28/19 02:34 Dose: 150 mls/hr Loratadine (Claritin) 10 mg PO DAILY PRN PRN Reason: Allergies Magnesium Oxide (Magnesium Oxide) 250 mg PO DAILY [facility] Last Admin: 01/28/19 08:38 Dose: 250 mg Metoprolol Succinate (Toprol Xl) 25 mg PO DAILY [facility] Last Admin: 01/28/19 09:29 Dose: Not Given Mometasone Furoate/Formoterol Fumar (Dulera 200-5 Mcg) 2 puff IH BID [facility] Last Admin: 01/27/19 21:01 Dose: 2 puff Multivitamins (Thera) 1 each PO DAILY [facility] Last Admin: 01/28/19 08:38 Dose: 1 each Nitroglycerin (Nitrostat) 0.4 mg SL .Q5MIN PRN PRN Reason: Chest Pain Amlodipine/Valsartan 10320 Mg Tab *Own Med* 1 each PO DAILY [facility] Last Admin: 01/28/19 09:29 Dose: Not Given Oseltamivir Phosphate (Tamiflu) 75 mg PO BID [facility] Stop: 02/01/19 09:01 Last Admin: 01/28/19 08:38 Dose: 75 mg Oxycodone HCl (Oxycodone) 10 mg PO Q4H PRN PRN Reason: Pain (severe 7-10) Last Admin: 01/28/19 05:04 Dose: 10 mg Pantoprazole Sodium (Protonix) 40 mg PO BIDAC [facility] Last Admin: 01/28/19 05:04 Dose: 40 mg Polyethylene Glycol (Miralax) 17 gm PO .EVERYDAY@0900 [facility] Last Admin: 01/28/19 08:40 Dose: 17 gm Polyethylene Glycol (Miralax) 17 gm PO BEDTIME PRN PRN Reason: Constipation Last Admin: 01/27/19 20:59 Dose: 17 gm Rivaroxaban (Xarelto) 10 mg PO DAILY [facility] Last Admin: 01/28/19 08:39 Dose: 10 mg Sodium Chloride (Saline Flush) 10 ml FLUSH ASDIRECTED PRN PRN Reason: Keep Vein Open Tolterodine Tartrate (Detrol La 24 Hr) 4 mg PO DAILY [facility] Last Admin: 01/28/19 08:38 Dose: 4 mg Tramadol HCl (Ultram) 50 mg PO Q6H PRN PRN Reason: Pain (moderate 4-6) Last Admin: 01/28/19 08:39 Dose: 50 mg Triamterene/HCTZ (Maxzide 25-37.5 Mg) 1 each PO DAILY [facility] Last Admin: 01/28/19 09:29 Dose: Not Given Discontinued Medications Acetaminophen (Tylenol Extra Strength) 1,000 mg PO Q8H [facility] Last Admin: 01/26/19 09:07 Dose: 1,000 mg Amlodipine Besylate (Norvasc) 10 mg PO DAILY [facility] Amlodipine Besylate (Norvasc) 10 mg PO DAILY [facility] Last Admin: 01/26/19 09:46 Dose: Not Given Enoxaparin Sodium (Lovenox) 40 mg SUBCUT DAILY [facility] Non-Formulary Medication (Tizanidine [Zanaflex]) 2 mg PO BEDTIME PRN PRN Reason: Muscle Spasm Polyethylene Glycol (Miralax) 17 gm PO .EVERYOTHERDAY [facility] Polyethylene Glycol (Miralax) 17 gm PO .EVERYOTHERDAY [facility] Valsartan (Diovan) 320 mg PO DAILY [facility] Valsartan (Diovan) 320 mg PO DAILY [facility] Last Admin: 01/26/19 09:45 Dose: Not Given - Exam General: Alert, Oriented, Cooperative, No Acute Distress. No: Mild Distress, Moderate Distress, Severe Distress, Sedated, Lethargic, Obtunded HEENT: Pupils Equal, Pupils Reactive, EOMI, Mucous Membr. Moist/[place] Neck: Supple, Trachea Midline Lungs: Clear to Auscultation, Normal Respiratory Effort Cardiovascular: Regular Rate, Regular Rhythm GI/Abdominal Exam: Normal Bowel Sounds, Soft, Non-Tender, No Organomegaly, No Distention, No Abnormal Bruit, No Mass (Male) Exam: Deferred Back Exam: Normal Inspection, Full Range of Motion Extremities: Normal Inspection (Putting in consideration his recent hip surgery. ), No Pedal Edema, Normal Capillary Refill, Other (Left hip surgical incision dressing is clean/dry/intact. There is slight redness around the incision but expected for postsurgical exam. This redness improved from yesterday.) - Problem List Review Problem List Initiated/Reviewed/Updated: Yes - My Orders Last 24 Hours: My Active Orders 01/27/19 14:40 Cyclobenzaprine [Flexeril] 10 mg PO TID PRN 01/27/19 15:55 Polyethylene Glycol 3350 [MiraLAX] 17 gm PO BEDTIME PRN 01/27/19 17:25 CULTURE URINE [RM] Routine Blood Culture x2 Reflex Set [OM.PC] Stat 01/27/19 18:07 CULTURE BLOOD [BC] Stat 01/27/19 18:13 CULTURE BLOOD [BC] Stat 01/27/19 19:30 Sodium Chloride 0.9% [Normal Saline] 1,000 ml IV ASDIRECTED 01/27/19 21:00 Oseltamivir [Tamiflu] 75 mg PO BID - Plan Plan:: 73 y/o M with h/o hip osteoarthritis status post electiveleft DELICIA on 01/22/[facility]. He was admitted to swing bed for physical and occupational therapy on 01/25/19. #Fever Started on 01/25/19 Likely from influenza B I discussed with patient's nurse and physical therapy staff to cautiously monitor left hip incision and report to me any changes such as redness, pain, decreased activity that are out of proportion or any concern #Influenza B infection -Tested positive for influenza B on 01/27/19 -Tamiflu 75 mg twice a day for 5 days was started on 01/27/19 -He received 2 L of IV fluid infusion #Hip osteoarthritis -S/p DELICIA -Continue PT/OT #HTN -Continue home hydrochlorothiazide/triamterene, amlodipine/valsartan and metoprolol #Asthma -Continue home inhalers #Coronary artery disease -s/p PTCA of RCA lesion but underwent CABG x 2 HOLLEY to LAD and SVG to PDA (2014) due to ulcerated LM/oLAD plaque -Continue home medication #Chronic lumbar pain -Chronic current pain meds #Rheumatoid arthritis -was Humira. 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 #Chronic anemia -Stable H&H #H/o DVT -On Xarelto #CARMENZA -On cpap with 2L O2qhs #Hx of GI bleed due to Internal hemorrhoids-MOnitor #HLD -Continue zetia #Overactive bladder -Continue detrol #DVT ppx: on Xarelto
[2019-01-28] MEDS: Formoterol/Mometasone 200-5 MCG 8.8 GM Inhaler IH SCH ×2 (10:32→21:30)
[2019-01-28] MEDS: Ezetimibe 10 MG Tab PO SCH (10:38)
[2019-01-29] MEDS: oxyCODONE 5 MG Tab PO PRN ×5 (00:25→20:38)
[2019-01-29] MEDS: traMADol 50 MG Tab PO PRN ×3 (03:39→21:50)
[2019-01-29] MEDS: Pantoprazole 40 MG Tab.CR PO SCH ×2 (05:01→17:35)
[2019-01-29] MEDS: Acetaminophen 500 MG Tab PO SCH ×3 (05:02→21:48)
[2019-01-29] MEDS: Oseltamivir 75 MG Cap PO SCH ×2 (09:20→20:38)
[2019-01-29] MEDS: Gabapentin 300 MG Cap PO SCH ×2 (09:20→20:37)
[2019-01-29] MEDS: Tolterodine 2 MG Cap.ER PO SCH (09:20)
[2019-01-29] MEDS: Rivaroxaban 10 MG Tab PO SCH (09:20)
[2019-01-29] MEDS: Ezetimibe 10 MG Tab PO SCH (09:21)
[2019-01-29] MEDS: Multivitamins,Therapeutic Tab PO SCH (09:21)
[2019-01-29] MEDS: VALSARTAN PO SCH (09:25)
[2019-01-29] MEDS: Metoprolol Succinate 25 MG Tab.ER PO SCH (09:25)
[2019-01-29] MEDS: Hydrochlorothiazide/Triamterene 25-37.5 Tab PO SCH (09:25)
[2019-01-29] MEDS: AMLODIPINE PO SCH (09:25)
[2019-01-29] MEDS: Formoterol/Mometasone 200-5 MCG 8.8 GM Inhaler IH SCH ×2 (10:15→21:49)
[2019-01-30] MEDS: oxyCODONE 5 MG Tab PO PRN ×4 (01:10→23:13)
[2019-01-30] MEDS: Pantoprazole 40 MG Tab.CR PO SCH ×2 (06:26→16:25)
[2019-01-30] MEDS: Acetaminophen 500 MG Tab PO SCH ×3 (06:26→22:27)
[2019-01-30] MEDS: Tolterodine 2 MG Cap.ER PO SCH (08:33)
[2019-01-30] MEDS: Hydrochlorothiazide/Triamterene 25-37.5 Tab PO SCH (08:34)
[2019-01-30] MEDS: Rivaroxaban 10 MG Tab PO SCH (08:34)
[2019-01-30] MEDS: Multivitamins,Therapeutic Tab PO SCH (08:34)
[2019-01-30] MEDS: Gabapentin 300 MG Cap PO SCH ×2 (08:34→20:50)
[2019-01-30] MEDS: Metoprolol Succinate 25 MG Tab.ER PO SCH (08:35)
[2019-01-30] MEDS: Ezetimibe 10 MG Tab PO SCH (08:35)
[2019-01-30] MEDS: Oseltamivir 75 MG Cap PO SCH ×2 (08:35→20:50)
[2019-01-30] MEDS: traMADol 50 MG Tab PO PRN ×3 (08:36→20:53)
[2019-01-30] MEDS: AMLODIPINE PO SCH (08:37)
[2019-01-30] MEDS: VALSARTAN PO SCH (08:37)
[2019-01-30] MEDS: Polyethylene Glycol 3350 Powder 17 GM Packet PO SCH (08:37)
[2019-01-30] MEDS: Formoterol/Mometasone 200-5 MCG 8.8 GM Inhaler IH SCH ×2 (08:38→20:52)
[2019-01-31] MEDS: traMADol 50 MG Tab PO PRN ×4 (02:46→20:30)
[2019-01-31] MEDS: Pantoprazole 40 MG Tab.CR PO SCH ×2 (05:58→16:29)
[2019-01-31] MEDS: oxyCODONE 5 MG Tab PO PRN ×2 (05:59→11:19)
[2019-01-31] MEDS: Acetaminophen 500 MG Tab PO SCH ×3 (06:00→22:05)
[2019-01-31] MEDS: Rivaroxaban 10 MG Tab PO SCH (08:51)
[2019-01-31] MEDS: Metoprolol Succinate 25 MG Tab.ER PO SCH (08:51)
[2019-01-31] MEDS: Tolterodine 2 MG Cap.ER PO SCH (08:51)
[2019-01-31] MEDS: Multivitamins,Therapeutic Tab PO SCH (08:51)
[2019-01-31] MEDS: Oseltamivir 75 MG Cap PO SCH ×2 (08:52→20:30)
[2019-01-31] MEDS: Hydrochlorothiazide/Triamterene 25-37.5 Tab PO SCH (08:52)
[2019-01-31] MEDS: Gabapentin 300 MG Cap PO SCH ×2 (08:52→20:29)
[2019-01-31] MEDS: Ezetimibe 10 MG Tab PO SCH (08:52)
[2019-01-31] MEDS: AMLODIPINE PO SCH (08:53)
[2019-01-31] MEDS: VALSARTAN PO SCH (08:53)
[2019-01-31] MEDS: Formoterol/Mometasone 200-5 MCG 8.8 GM Inhaler IH SCH ×2 (08:54→20:29)
[2019-02-01] MEDS: traMADol 50 MG Tab PO PRN ×3 (04:28→20:35)
[2019-02-01] MEDS: Pantoprazole 40 MG Tab.CR PO SCH ×2 (05:59→15:39)
[2019-02-01] MEDS: Acetaminophen 500 MG Tab PO SCH ×3 (05:59→22:00)
[2019-02-01] MEDS: Polyethylene Glycol 3350 Powder 17 GM Packet PO SCH (10:20)
[2019-02-01] MEDS: Rivaroxaban 10 MG Tab PO SCH (10:21)
[2019-02-01] MEDS: Multivitamins,Therapeutic Tab PO SCH (10:22)
[2019-02-01] MEDS: Hydrochlorothiazide/Triamterene 25-37.5 Tab PO SCH (10:22)
[2019-02-01] MEDS: Gabapentin 300 MG Cap PO SCH ×2 (10:22→20:35)
[2019-02-01] MEDS: Oseltamivir 75 MG Cap PO SCH (10:23)
[2019-02-01] MEDS: Ezetimibe 10 MG Tab PO SCH (10:23)
[2019-02-01] MEDS: Metoprolol Succinate 25 MG Tab.ER PO SCH (10:23)
[2019-02-01] MEDS: Tolterodine 2 MG Cap.ER PO SCH (10:24)
[2019-02-01] MEDS: AMLODIPINE PO SCH (10:24)
[2019-02-01] MEDS: VALSARTAN PO SCH (10:24)
[2019-02-01] MEDS: Formoterol/Mometasone 200-5 MCG 8.8 GM Inhaler IH SCH ×2 (10:25→20:34)
[2019-02-01] MEDS ORDERED: Rivaroxaban 10 MG Tab PO ONE (14:45)
[2019-02-01] MEDS: oxyCODONE 5 MG Tab PO PRN (14:51)
[2019-02-02] MEDS: traMADol 50 MG Tab PO PRN (04:09)
[2019-02-02] MEDS: Pantoprazole 40 MG Tab.CR PO SCH (05:52)
[2019-02-02] MEDS: Acetaminophen 500 MG Tab PO SCH (05:52)
[2019-02-02 07:41] VITALS: BP 116/49; PULSE 66
--- NOTE | 2019-02-02 08:07 | PCM.DCSUM1 ---
Discharge Summary - Hospital Course Free Text/Narrative:: 73 y/o M with h/o hip osteoarthritis s/p electiveleft DELICIA on 01/22/19 at [facility]. He was admitted to swing bed for physical and occupational therapy on 01/25/19. He made progress regarding his physical therapy. He developed fever on admission and was diagnosed with influenza. He completed 5 days of Tamiflu 75 mg twice a day. He has been free of elevated temp for the past 48-72 hours. Patient is discharged home today to continue outpatient physical therapy #Influenza B infection -Tested positive for influenza B on 01/27/19 -Tamiflu 75 mg twice a day for 5 days was started on 01/27/19 -He received 2 L of IV fluid infusion #Hip osteoarthritis -S/p DELICIA -Continue PT/OT #HTN -Continue home hydrochlorothiazide/triamterene, amlodipine/valsartan and metoprolol #Asthma -Continue home inhalers #Coronary artery disease -s/p PTCA of RCA lesion but underwent CABG x 2 HOLLEY to LAD and SVG to PDA (2014) due to ulcerated LM/oLAD plaque -Continue home medication #Chronic lumbar pain -Chronic current pain meds #Rheumatoid arthritis -was Humira. Patient stated that his major account manager stopped it 6 weeks prior to his surgery and is planning to restarted 6 months later. #Chronic anemia -Stable H&H #H/o DVT -On Xarelto #CARMENZA -On cpap with 2L O2qhs #Hx of GI bleed due to Internal hemorrhoids-MOnitor #HLD -Continue zetia #Overactive bladder -Continue detrol #DVT ppx: on Xarelto Diagnosis: Stroke: No - Discharge Data Discharge Date: 02/02/19 Discharge Disposition: Home, Self-Care 01 Condition: Fair - Referral to Home Health Date of Face to Face Encounter: 02/02/19 Primary Care Physician: Sly Infante MD - Discharge Diagnosis/Problem(s) (1) Status post left hip replacement SNOMED Code(s): 412583101, [id number], [id number], [id number] ICD Code: Z96.642 - PRESENCE OF LEFT ARTIFICIAL HIP JOINT Status: Acute Current Visit: Yes - Patient Summary/Data Consults: Consultations 01/25/19 17:27 OT Evaluation and Treatment [CONS] Routine PT Evaluation and Treatment [CONS] Routine - Patient Instructions Diet: Heart Healthy Diet Activity: As Tolerated (Per physical therapy recommendations) Showering/Bathing: May Shower Notify Provider of: Fever, Increased Pain, Swelling and Redness, Drainage, Nausea and/or Vomiting - Discharge Plan Home Medications: Home Meds Gabapentin [Neurontin] 600 mg PO BID 07/05/14 [History] Triamterene/Hydrochlorothiazid [Triamterene-HCTZ 37.5-25 MG] 1 tab PO DAILY [History] tiZANidine [Zanaflex] 2 mg PO BEDTIME PRN 07/05/14 [History] Docusate Sodium [Colace] 100 mg PO .EVERY THREE DAYS 08/25/14 [History] Metoprolol Succinate [Toprol XL] 25 mg PO DAILY 09/19/14 [History] Cetirizine [ZyrTEC] 10 mg PO DAILY PRN 02/03/15 [History] Rivaroxaban [Xarelto] 20 mg PO DAILY 10/22/16 [History] Albuterol Sulfate [Proair Hfa] 2 puff INH Q4H PRN 09/10/17 [History] Budesonide/Formoterol Fumarate [Symbicort 160-4.5 Mcg Inhaler] 2 puff INH BID [History] Ezetimibe [Zetia] 10 mg PO DAILY 09/10/17 [History] Pantoprazole [ProTONIX] 40 mg PO BID 09/10/17 [History] Tolterodine Tartrate [Detrol LA] 4 mg PO DAILY 09/10/17 [History] amLODIPine/Valsartan [Amlodipine-Valsartan 10-320 mg] 1 tab PO DAILY 09/10/17 [ History] Clotrimazole/Betamethasone Dip [Lotrisone Cream] 1 applic TOP BID PRN 11/07/17 [ History] Acetaminophen 1,000 mg PO Q8H 01/25/19 [History] Fluticasone Propionate [Flonase] 1 spray NASBOTH DAILY PRN 01/25/19 [History] Magnesium Oxide 250 mg PO DAILY 01/25/19 [History] Mv-Mn/Folic Acid/Lutein/Yvk104 [Mens Multivit High Potency Tab] 1 tab PO DAILY 01/25/19 [History] Nitroglycerin [Nitrostat] 0.4 mg SL .Q5MIN PRN 01/25/19 [History] Polyethylene Glycol 3350 [MiraLAX] 17 gram PO .EVERYOTHERDAY 01/25/19 [History] oxyCODONE HCl [Oxycodone HCl] 10 mg PO Q4H PRN 01/25/19 [History] traMADol [Ultram] 50 mg PO Q6H PRN 01/25/19 [History] Patient Handouts: Total Hip Replacement, Care After, [id number] - Discharge Summary/Plan Comment DC Time >30 min.: No - General Info Date of Service: 02/02/19 Admission Dx/Problem (Free Text: Admission Diagnosis/Problem Admission Diagnosis/Problem Status post left hip replacement Subjective Update: Patient denies any new symptoms for the past few days. He denies left hip pain out of proportion. He denies fevers, chills, sweats for the past 3 days. He also denies sinus congestion, runny nose, sore throat, headache, cough, shortness of breath, chest pain, abdominal pain, diarrhea, urinary symptoms, lower extremities edema, any other symptoms or concerns. According to records history of having elevated temperature on 01/25/19. - Patient Data Vitals - Most Recent: Last Vital Signs Temp 35.9 C 02/02/19 07:40 Pulse 66 02/02/19 07:40 Resp 20 02/02/19 07:40 BP 116/49 L 02/02/19 07:40 Pulse Ox 96 02/02/19 07:40 Weight - Most Recent: 95.844 kg I&O - Last 24 hours: Intake & Output 02/01/19 02/02/19 02/02/19 22:59 06:59 14:59 Intake Total 300 Balance 300 ALESIA Results - Last 24 hrs: Microbiology 01/27/19 18:13 Aerobic Blood Culture - Final Blood - Venous - Lab Draw NO GROWTH AFTER 5 DAYS Anaerobic Blood Culture - Final NO GROWTH AFTER 5 DAYS 01/27/19 18:07 Aerobic Blood Culture - Final Blood - Venous NO GROWTH AFTER 5 DAYS Anaerobic Blood Culture - Final NO GROWTH AFTER 5 DAYS Med Orders - Current: Current Medications Acetaminophen (Tylenol Extra Strength) 1,000 mg PO Q8HR SKYLAR Last Admin: 02/02/19 05:52 Dose: 1,000 mg Albuterol (Proventil Hfa) 0 gm INH Q4H PRN PRN Reason: Shortness of Breath Betamethasone/Clotrimazole (Lotrisone) 0 gm TOP BID PRN PRN Reason: Rash Cyclobenzaprine HCl (Flexeril) 10 mg PO TID PRN PRN Reason: Muscle Spasm Last Admin: 01/27/19 21:04 Dose: 10 mg Docusate Sodium (Colace) 100 mg PO .EVERY THREE DAYS [facility] Ezetimibe (Zetia) 10 mg PO DAILY [facility] Last Admin: 02/01/19 10:23 Dose: 10 mg Fluticasone Propionate (Flonase) 0 gm NASBOTH DAILY PRN PRN Reason: Rhinitis Gabapentin (Neurontin) 600 mg PO BID [facility] Last Admin: 02/01/19 20:35 Dose: 600 mg Loratadine (Claritin) 10 mg PO DAILY PRN PRN Reason: Allergies Magnesium Oxide (Magnesium Oxide) 250 mg PO DAILY [facility] Last Admin: 02/01/19 10:22 Dose: 250 mg Metoprolol Succinate (Toprol Xl) 25 mg PO DAILY [facility] Last Admin: 02/01/19 10:23 Dose: 25 mg Mometasone Furoate/Formoterol Fumar (Dulera 200-5 Mcg) 2 puff IH BID [facility] Last Admin: 02/01/19 20:34 Dose: 2 puff Multivitamins (Thera) 1 each PO DAILY [facility] Last Admin: 02/01/19 10:22 Dose: 1 each Nitroglycerin (Nitrostat) 0.4 mg SL .Q5MIN PRN PRN Reason: Chest Pain Amlodipine/Valsartan 10/320 Mg Tab *Own Med* 1 each PO DAILY [facility] Last Admin: 02/01/19 10:24 Dose: 1 each Oxycodone HCl (Oxycodone) 10 mg PO Q4H PRN PRN Reason: Pain (severe 7-10) Last Admin: 02/01/19 14:51 Dose: 10 mg Pantoprazole Sodium (Protonix) 40 mg PO BIDAC [facility] Last Admin: 02/02/19 05:52 Dose: 40 mg Polyethylene Glycol (Miralax) 17 gm PO .EVERYDAY@0900 [facility] Last Admin: 02/01/19 10:20 Dose: 17 gm Polyethylene Glycol (Miralax) 17 gm PO BEDTIME PRN PRN Reason: Constipation Last Admin: 01/27/19 20:59 Dose: 17 gm Rivaroxaban (Xarelto) 10 mg PO DAILY [facility] Last Admin: 02/01/19 10:21 Dose: 10 mg Senna/Docusate Sodium (Senna Plus) 1 tab PO TID PRN PRN Reason: Constipation Last Admin: 01/28/19 21:29 Dose: 1 tab Sodium Chloride (Saline Flush) 10 ml FLUSH ASDIRECTED PRN PRN Reason: Keep Vein Open Last Admin: 01/30/19 20:57 Dose: 10 ml Tolterodine Tartrate (Detrol La 24 Hr) 4 mg PO DAILY [facility] Last Admin: 02/01/19 10:24 Dose: 4 mg Tramadol HCl (Ultram) 50 mg PO Q6H PRN PRN Reason: Pain (moderate 4-6) Last Admin: 02/02/19 04:09 Dose: 50 mg Triamterene/HCTZ (Maxzide 25-37.5 Mg) 1 each PO DAILY [facility] Last Admin: 02/01/19 10:22 Dose: 1 each Discontinued Medications Acetaminophen (Tylenol Extra Strength) 1,000 mg PO Q8H [facility] Last Admin: 01/26/19 09:07 Dose: 1,000 mg Amlodipine Besylate (Norvasc) 10 mg PO DAILY [facility] Amlodipine Besylate (Norvasc) 10 mg PO DAILY [facility] Last Admin: 01/26/19 09:46 Dose: Not Given Enoxaparin Sodium (Lovenox) 40 mg SUBCUT DAILY [facility] Sodium Chloride (Normal Saline) 1,000 mls @ 150 mls/hr IV ASDIRECTED [facility] Stop: 01/29/19 02:09 Last Admin: 01/28/19 02:34 Dose: 150 mls/hr Non-Formulary Medication (Tizanidine [Zanaflex]) 2 mg PO BEDTIME PRN PRN Reason: Muscle Spasm Oseltamivir Phosphate (Tamiflu) 75 mg PO BID [facility] Stop: 02/01/19 09:01 Last Admin: 02/01/19 10:23 Dose: 75 mg Polyethylene Glycol (Miralax) 17 gm PO .EVERYOTHERDAY [facility] Polyethylene Glycol (Miralax) 17 gm PO .EVERYOTHERDAY [facility] Rivaroxaban (Xarelto) 10 mg PO ONETIME ONE Stop: 02/01/19 14:46 Last Admin: 02/01/19 15:39 Dose: 10 mg Valsartan (Diovan) 320 mg PO DAILY SKYLAR Valsartan (Diovan) 320 mg PO DAILY SKYLAR Last Admin: 01/26/19 09:45 Dose: Not Given - Exam General: Reports: Alert, Oriented, Cooperative, No Acute Distress. Denies: Mild Distress, Moderate Distress, Severe Distress, Sedated, Lethargic, Obtunded HEENT: Reports: Pupils Reactive, EOMI, Mucous Membr. Moist/[place] Neck: Reports: Supple, Trachea Midline, No JVD Lungs: Reports: Clear to Auscultation, Normal Respiratory Effort. Denies: Decreased Breath Sounds, Crackles, Rales, Rhonchi, Rub, Stridor, Wheezing Cardiovascular: Reports: Regular Rate, Regular Rhythm GI/Abdominal Exam: Normal Bowel Sounds, Soft, Non-Tender, No Organomegaly, No Distention, No Mass (Male) Exam: Deferred Rectal (Males) Exam: Deferred Back Exam: Reports: Normal Inspection, Full Range of Motion. Denies: CVA Tenderness (L), CVA Tenderness (R) Extremities: Normal Inspection, Normal Range of Motion, Non-Tender, No Pedal Edema, Normal Capillary Refill, Other (Left hip swelling improved and has no redness, drainage, fluctuation, or induration. Past year range of motion. Wound is healing appropriately) Skin: Reports: Warm, Dry, Intact Wound/Incisions: Reports: Healing Well Neurological: Reports: No New Focal Deficit, Normal Speech, Normal Tone Psy/Mental Status: Reports: Alert, Normal Affect, Normal Mood. Denies: Labile Mood, Anxious, Depressed, Agitated, Suicidal Ideation, Homicidal Ideation
[2019-02-02] MEDS ORDERED: Rivaroxaban 10 MG Tab PO SCH (09:00)
[2019-02-02] MEDS: Gabapentin 300 MG Cap PO SCH (09:16)
[2019-02-02] MEDS: Multivitamins,Therapeutic Tab PO SCH (09:17)
[2019-02-02] MEDS: Hydrochlorothiazide/Triamterene 25-37.5 Tab PO SCH (09:17)
[2019-02-02] MEDS: Tolterodine 2 MG Cap.ER PO SCH (09:17)
[2019-02-02] MEDS: Ezetimibe 10 MG Tab PO SCH (09:18)
[2019-02-02] MEDS: Formoterol/Mometasone 200-5 MCG 8.8 GM Inhaler IH SCH (09:20)
[2019-02-02] MEDS: Metoprolol Succinate 25 MG Tab.ER PO SCH (09:20)
[2019-02-02] MEDS: VALSARTAN PO SCH (09:20)
[2019-02-02] MEDS: AMLODIPINE PO SCH (09:20)
== END 2019-02-02 11:16 | disposition home or self-care (01) | DRG 561 ==
LOC: UNDOADMIN 16:04 → DL.MS 16:04
PROVIDERS: ADMIT Student in an Organized Health Care Education/Training Program; ATTEND Family Medicine
DX: Z47.1 Aftercare following joint replacement surgery (principal); J10.1 Influenza due to other identified influenza virus with other respiratory manifestations; I10 Essential (primary) hypertension; J45.909 Unspecified asthma, uncomplicated; I25.10 Atherosclerotic heart disease of native coronary artery without angina pectoris; M54.5 Low back pain; G89.29 Other chronic pain; M06.9 Rheumatoid arthritis, unspecified; D64.9 Anemia, unspecified; G47.33 Obstructive sleep apnea (adult) (pediatric); Z96.642 Presence of left artificial hip joint; E78.5 Hyperlipidemia, unspecified; N32.81 Overactive bladder; K59.09 Other constipation; K21.9 Gastro-esophageal reflux disease without esophagitis; Z86.718 Personal history of other venous thrombosis and embolism; Z79.899 Other long term (current) drug therapy; Z79.51 Long term (current) use of inhaled steroids; Z85.46 Personal history of malignant neoplasm of prostate; Z90.49 Acquired absence of other specified parts of digestive tract; Z87.891 Personal history of nicotine dependence; Z95.1 Presence of aortocoronary bypass graft
CPT/HCPCS: 36415; 71045; 71046; 80048; 81001; 82565; 85025; 86140; 87040; 87086; 87804; 97110-GP; 97116-GP; 97162-GP; 97165-GO; 97530-GO; A9270-GY; J7030

== ENCOUNTER 2023-10-03 19:27 | Emergency (ER) | payer MEDICARE, OTHER ==
[2023-10-03] MEDS: hydrALAZINE 20 MG/ML SDV IVPUSH ONE ×2 (21:03→22:30)
[2023-10-03] MEDS: Furosemide 40 MG/4 ML VIAL IVPUSH ONE (21:03)
[2023-10-03 21:07] LABS: BASOPHILS PERCENT AUTO 0.6 % (0.0-1.0); EOSINOPHILS PERCENT AUTO 3.9 % (1.0-3.0); HEMATOCRIT 41.4 % (40.0-54.0); HEMOGLOBIN 14.1 g/dL (14.0-18.0); LYMPHOCYTES PERCENT AUTO 13.3 % (20.5-50.1); MEAN CORPUSCULAR HEMOGLOBIN 31.8 pg (27.0-34.0); MEAN CORPUSCULAR HGB CONC 34.1 g/dL (33.0-35.0); MEAN CORPUSCULAR VOLUME 93.5 fL (80-100); NEUTROPHILS PERCENT AUTO 70.2 % (42.2-75.2); PLATELET COUNT,PLT 177 10^3/uL (150-450); RED BLOOD CELL COUNT 4.43 10^6/uL (4.6-6.2); WHITE BLOOD CELL COUNT,WBC 9.9 10^3/uL (5.0-10.0)
[2023-10-03 21:24] LABS: APPEARANCE,URINE CLEAR (CLEAR); BILIRUBIN,URINE NEGATIVE (NEGATIVE); COLOR,URINE YELLOW (YELLOW); GLUCOSE,URINE NEGATIVE (NEGATIVE); KETONES,URINE TRACE (NEGATIVE); LEUKOCYTE ESTERASE,URINE NEGATIVE (NEGATIVE); NITRITE,URINE NEGATIVE (NEGATIVE); OCCULT BLOOD,URINE NEGATIVE (NEGATIVE); PROTEIN,URINE 30 (NEGATIVE); UROBILINOGEN,URINE 0.2 mg/dL (0.2-1.0)
[2023-10-03 21:26] LABS: A/G RATIO 1.2; ALBUMIN 3.9 g/dL (3.4-5.0); ANION GAP 10.9 mEq/L (7-13); BILIRUBIN TOTAL 0.6 mg/dL (0.2-1.0); BUN/CREATININE RATIO 20.6 (No establ ref range); CALCIUM 9.2 mg/dL (8.5-10.1); CREATININE 1.07 mg/dL (0.70-1.30); EST CRCL DRUG DOSING (CG) 63.46 mL/min; MAGNESIUM 1.9 mg/dL (1.8-2.4); POTASSIUM,K 3.9 mmol/L (3.5-5.1); PROTEIN TOTAL,TP 7.1 g/dL (6.4-8.2)
[2023-10-03 21:33] LABS: RBC,URINE 0-5 /HPF (0-5); WBC,URINE 0-5 /HPF (0-5/HPF)
[2023-10-03 21:34] LABS: BACTERIA,URINE RARE /HPF (0-FEW/HPF); EPITHELIAL CELLS,URINE RARE /HPF (NOT SEEN); HYALINE CASTS,URINE MODERATE; MUCUS,URINE FEW /LPF (NOT SEEN)
[2023-10-03] MEDS: Sodium Chloride 0.9% 10 ML Syringe FLUSH PRN (22:00)
[2023-10-03] MEDS: Ondansetron 4 MG/2 ML SDV IVPUSH ONE (23:55)
[2023-10-04] MEDS: cloNIDine 0.1 MG Tab PO ONE (00:05)
[2023-10-04 00:44] VITALS: BP 131/68; PULSE 84
== END 2023-10-04 00:18 | disposition home or self-care (01) ==
LOC: DL.ED 19:27
DX: I16.0 Hypertensive urgency (principal); I10 Essential (primary) hypertension; R60.9 Edema, unspecified; I25.10 Atherosclerotic heart disease of native coronary artery without angina pectoris; E78.00 Pure hypercholesterolemia, unspecified; Z95.1 Presence of aortocoronary bypass graft; K21.9 Gastro-esophageal reflux disease without esophagitis; Z86.16 Personal history of COVID-19; Z95.5 Presence of coronary angioplasty implant and graft; Z88.1 Allergy status to other antibiotic agents; Z79.899 Other long term (current) drug therapy; Z79.01 Long term (current) use of anticoagulants; Z87.891 Personal history of nicotine dependence
CPT/HCPCS: 36415; 80053; 81001; 83735; 83880; 85025; 93005; 93010; 96374; 96375; 96376; 99284; 99284-25; J0360; J1940; J2405; J3490